=== PATIENT | male | born 1935 | race Caucasian/White ===

== ENCOUNTER 2017-01-19 12:45 | Emergency (ER) | payer MEDICARE ==
[~2017-01-19] VITALS: Ht 175.3 cm; Wt 75.0 kg
[~2017-01-19 12:45] MED LIST: 1-ME1LIQ PO; LISI-586 PO
[2017-01-19 12:46] VITALS: BP 198/101; PULSE 101; RESP 21; TEMP 98.2; O2SAT 99
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
[2017-01-19] MEDS ORDERED: LORazepam 1 MG TAB PO ONE (14:00)
[2017-01-19 14:28] LABS: AUTOMATED NEUTROPHIL # 5.7 TH/MM3 (1.8-7.7); BASOPHIL # 0.1 TH/MM3 (0-0.2); BASOPHIL % 0.6 % (0.0-2.0); EOSINOPHIL # 0.1 TH/MM3 (0-0.4); EOSINOPHIL % 1.3 % (0.0-4.0); HEMATOCRIT 41.1 % (39.0-51.0); LYMPH % 17.8 % (9.0-44.0); LYMPHOCYTE # 1.5 TH/MM3 (1.0-4.8); MEAN CELL VOLUME 91.2 FL (80.0-100.0); MEAN CORPUSCULAR HEMOGLOBIN 30.7 PG (27.0-34.0); MEAN CORPUSCULAR HGB CONC 33.6 % (32.0-36.0); MONO % 10.7 % (0.0-8.0); NEUT % 69.6 % (16.0-70.0); RED BLOOD COUNT 4.51 MIL/MM3 (4.50-5.90); RED CELL DISTRIBUTION WIDTH 14.8 % (11.6-17.2); WHITE BLOOD COUNT 8.2 TH/MM3 (4.0-11.0)
[2017-01-19 14:36] LABS: AMPHETAMINE, URINE NEG (NEG); BARBITURATES, URINE NEG (NEG); COCAINE, URINE NEG (NEG)
[2017-01-19 14:44] LABS: HEMO FLAGS AUTO DIFF
[2017-01-19 14:51] LABS: ALT (GPT) 23 U/L (12-78); ANION GAP 6 MEQ/L (5-15); AST (GOT) 20 U/L (15-37); BICARBONATE 28.1 MEQ/L (21.0-32.0); BLOOD UREA NITROGEN 29 MG/DL (7-18); CHLORIDE 109 MEQ/L (98-107); GLOMERULAR FILTRATION RATE 56 ML/MIN (>89); POTASSIUM 3.9 MEQ/L (3.5-5.1); SODIUM (NA) 143 MEQ/L (136-145)
[2017-01-19 14:54] LABS: ALKALINE PHOSPHATASE 63 U/L (45-117); TOTAL BILIRUBIN ADULT 0.4 MG/DL (0.2-1.0)
[2017-01-19 14:55] LABS: OVALOCYTES 1+ (NORMAL); PLATELET ESTIMATE SMEAR LOW (NORMAL); PLATELET MORPHOLOGY ENLARGED (NORMAL); SCAN/DIFF AUTO DIFF CONFIRMED
[2017-01-19 16:20] VITALS: BP 200/98; PULSE 86; RESP 18; TEMP 97.8; O2SAT 98
[2017-01-19] MEDS ORDERED: cloNIDine HCL 0.1 MG TAB PO ONE (16:30)
--- NOTE | 2017-01-19 18:04 | PD ---
Physical Exam Date Seen by Provider: Jan 19, 2017 Narrative GENERAL: SKIN: Warm and dry. HEAD: Atraumatic. Normocephalic. EYES: Pupils equal and round. No scleral icterus. No injection or drainage. ENT: No nasal bleeding or discharge. Mucous membranes pink and moist. NECK: Trachea midline. No JVD. CARDIOVASCULAR: Regular rate and rhythm. RESPIRATORY: No accessory muscle use. Clear to auscultation. Breath sounds equal bilaterally. GASTROINTESTINAL: Abdomen soft, non-tender, nondistended. Hepatic and splenic margins not palpable. MUSCULOSKELETAL: Extremities without clubbing, cyanosis, or edema. No obvious deformities. NEUROLOGICAL: Awake and alert. No obvious cranial nerve deficits. Motor grossly within normal limits. Five out of 5 muscle strength in the arms and legs. Normal speech. PSYCHIATRIC: Appropriate mood and affect; insight and judgment normal. . Data Data Last Documented VS Vital Signs Date Time Temp Pulse Resp B/P Pulse Ox O2 Delivery O2 Flow Rate FiO2 01/19/17 16:20 97.8 86 18 200/98 98 Room Air Orders Complete Blood Count With Diff (01/19/17 13:45) Comprehensive Metabolic Panel (01/19/17 13:45) Psych Screen (01/19/17 13:45) Drug Screen, Random Urine (01/19/17 13:45) Lorazepam (Ativan) (01/19/17 14:00) Clonidine (Catapres) (01/19/17 16:30) Labs Laboratory Tests Test 01/19/17 14:00 White Blood Count 8.2 TH/MM3 Red Blood Count 4.51 MIL/MM3 Hemoglobin 13.8 GM/DL Hematocrit 41.1 % Mean Corpuscular Volume 91.2 FL Mean Corpuscular Hemoglobin 30.7 PG Mean Corpuscular Hemoglobin 33.6 % Concent Red Cell Distribution Width 14.8 % Platelet Count TH/MM3 Mean Platelet Volume 11.2 FL Neutrophils (%) (Auto) 69.6 % Lymphocytes (%) (Auto) 17.8 % Monocytes (%) (Auto) 10.7 % Eosinophils (%) (Auto) 1.3 % Basophils (%) (Auto) 0.6 % Neutrophils # (Auto) 5.7 TH/MM3 Lymphocytes # (Auto) 1.5 TH/MM3 Monocytes # (Auto) 0.9 TH/MM3 Eosinophils # (Auto) 0.1 TH/MM3 Basophils # (Auto) 0.1 TH/MM3 CBC Comment AUTO DIFF Differential Comment AUTO DIFF CONFIRMED Platelet Estimate LOW Platelet Morphology Comment ENLARGED Ovalocytes 1+ Sodium Level 143 MEQ/L Potassium Level 3.9 MEQ/L Chloride Level 109 MEQ/L Carbon Dioxide Level 28.1 MEQ/L Anion Gap 6 MEQ/L Blood Urea Nitrogen 29 MG/DL Creatinine 1.23 MG/DL Estimat Glomerular Filtration 56 ML/MIN Rate Random Glucose 54 MG/DL Calcium Level 8.4 MG/DL Total Bilirubin 0.4 MG/DL Aspartate Amino Transf 20 U/L (AST/SGOT) Alanine Aminotransferase 23 U/L (ALT/SGPT) Alkaline Phosphatase 63 U/L Total Protein 8.1 GM/DL Albumin 3.6 GM/DL Urine Opiates Screen NEG Urine Barbiturates Screen NEG Urine Amphetamines Screen NEG Urine Benzodiazepines Screen NEG Urine Cocaine Screen NEG Urine Cannabinoids Screen NEG MDM Medical Record Reviewed: Yes Supervised Visit with ONIEL: No Narrative Course PATIENT WAS MEDICALLY CLEARED BY DR SANDERS, HOWEVER PSYCH SCREENED ALSO CLEARED PATIENT NOT SUICIDAL OR HOMICIDAL AND THAT THEY RECOMENDED SOME COMMUNITY PROGRAMS TO ASSIST HIM Diagnosis Primary Impression: PSYCHIATRIC CLEARANCE Additional Impression: MEDICAL CLEARANCE Scripts No Active Prescriptions or Reported Meds Disposition: 01 DISCHARGE HOME Condition: Stable Solis Ortiz MD Jan 19, 2017 18:04
[2017-01-19 18:20] VITALS: BP 150/84; TEMP 97.8
== END 2017-01-19 18:20 | disposition home or self-care (01) ==
LOC: NEPD 12:45
DX: R45.1 Restlessness and agitation (principal); I10 Essential (primary) hypertension; I25.2 Old myocardial infarction; Z59.0 Homelessness
CPT/HCPCS: 80053; 80307; 85025; 99283